=== PATIENT | male | born 1995 | race African-American/Black ===

== ENCOUNTER 2017-12-01 04:15 | Emergency (ER) | payer BC ==
[2017-12-01 04:28] VITALS: BP 135/75; PULSE 92; TEMP 98; BMI 33.7
--- NOTE | 2017-12-01 05:43 | PDOC ---
History of Present Illness - General Chief Complaint: Alcohol intoxication Stated Complaint: INTOX History Source: Patient Exam Limitations: No Limitations - History of Present Illness Initial Comments: 12/01/17 06:12 reports alcohol use with one episode of vomiting Timing/Duration: 4-6 hours Severity: mild, moderate Modifying Factors: improves with: rest Associated Symptoms: reports: denies symptoms Past History - Past Medical History Allergies/Adverse Reactions: Allergies Allergy/AdvReac Type Severity Reaction Status Date / Time No Known Allergies Allergy Unverified 12/31/14 00:03 Home Medications: Ambulatory Orders NK [No Known Home Medication] 12/01/17 COPD: No Diabetes: No - Immunization History Immunization Up to Date: Yes - Suicide/Smoking/Psychosocial Hx Smoking History: Never smoked Have you smoked in the past 12 months: Yes Number of Cigarettes Smoked Daily: 1 'Breaking Loose' booklet given: 12/31/14 Review of Systems - Review of Systems Able to Perform ROS?: Yes All Other Systems: Reviewed and Negative *Physical Exam - Vital Signs Last Vital Signs Temp Pulse Resp BP Pulse Ox 98 F 92 H 18 135/75 96 12/01/17 04:25 12/01/17 04:25 12/01/17 04:25 12/01/17 04:25 12/01/17 04:25 - Physical Exam General Appearance: Yes: Nourished, Appropriately Dressed HEENT: positive: Normal Voice Neck: negative: Tender Respiratory/Chest: positive: Lungs Clear Cardiovascular: positive: Regular Rhythm Gastrointestinal/Abdominal: positive: Normal Bowel Sounds Lymphatic: negative: Adenopathy Musculoskeletal: positive: Normal Inspection Extremity: positive: Normal Capillary Refill Integumentary: positive: Normal Color Neurologic: positive: Fully Oriented, Other (nl gait) Medical Decision Making - Medical Decision Making 12/01/17 06:15 alcohol use clinically sober *DC/Admit/Observation/Transfer Diagnosis at time of Disposition: Alcohol use - Discharge Dispostion Disposition: HOME - Referrals - Patient Instructions - Post Discharge Activity
== END 2017-12-01 04:48 | disposition home or self-care (01) ==
LOC: FER 04:15
DX: F10.99 Alcohol use, unspecified with unspecified alcohol-induced disorder (principal)
CPT/HCPCS: 99281-25